=== PATIENT | male | born 1995 | race Caucasian/White ===

== ENCOUNTER 2017-02-11 15:19 | Emergency (ER) | payer OTHER ==
[2017-02-11 15:31] VITALS: BP 132/78
--- NOTE | 2017-02-11 16:22 | ED ---
Psychiatric Complaint - HPI Summary HPI Summary: 21M presents with anxiety today. He states he has been working more and has not been eating much or sleeping well. He has a strong family history of anxiety. He states he used to be on medication but hasn't been on a while. He denies any si/hi. He is looking for medication to help him when he has an anxiety attack. He denies any chest pain, SOB, or recent illness. He states when he has an attack he gets numbness in his fingers. - History Of Current Complaint Chief Complaint: EDGeneral Time Seen by Provider: 02/11/17 15:54 PMH/Surg Hx/FS Hx/Imm Hx Endocrine/Hematology History: Denies: Hx Anticoagulant Therapy Cardiovascular History: Denies: Hx Hypertension Psychiatric History: Reports: Hx Anxiety Infectious Disease History: No Infectious Disease History: Denies: Traveled Outside the [place] in Last 30 Days - Family History Known Family History: Positive: Other - anxiety - Social History Alcohol Use: Weekly Substance Use Type: Reports: None Smoking Status (MU): Light Every Day Tobacco Smoker Review of Systems Negative: Fever Negative: Chest Pain Negative: Shortness Of Breath Positive: Anxious All Other Systems Reviewed And Are Negative: Yes Physical Exam Triage Information Reviewed: Yes Vital Signs On Initial Exam: Initial Vitals Temp Pulse Resp BP Pulse Ox 99.1 F 96 16 101/59 96 02/11/17 15:28 02/11/17 15:28 02/11/17 15:28 02/11/17 15:28 02/11/17 15:28 Vital Signs Reviewed: Yes Appearance: Positive: Well-Appearing Skin: Positive: Warm, Dry Head/Face: Positive: Normal Head/Face Inspection Eyes: Positive: Normal, Conjunctiva Clear ENT: Positive: Normal ENT inspection, Pharynx normal, TMs normal Respiratory/Lung Sounds: Positive: Clear to Auscultation, Breath Sounds Present Cardiovascular: Positive: Normal, RRR Abdomen Description: Positive: Nontender, Soft Bowel Sounds: Positive: Present - Gricel Coma Scale Coma Scale Total: 15 Diagnostics - Vital Signs Vital Signs Temp Pulse Resp BP Pulse Ox 02/11/17 15:30 99.1 F 105 20 132/78 97 02/11/17 15:28 99.1 F 96 16 101/59 96 - Laboratory Lab Statement: Any lab studies that have been ordered have been reviewed, and results considered in the medical decision making process. Course/Dx - Course Course Of Treatment: 21M presents with anxiety today. He states he has been working more and has not been eating much or sleeping well. He has a strong family history of anxiety. He states he used to be on medication but hasn't been on a while. He denies any si/hi. He is looking for medication to help him when he has an anxiety attack. He denies any chest pain, SOB, or recent illness. He states when he has an attack he gets numbness in his fingers. normal PE. will prescribe atrax and told to get mental health provider. patient understands and agrees with plan - Differential Dx/Clinical Impression Differential Diagnosis/HQI/PQRI: Positive: Anxiety, Depression Provider Diagnosis: Anxiety Discharge - Discharge Plan Condition: Good Disposition: HOME Prescriptions: hydrOXYzine HCL TAB* [Atarax 25 MG TAB*] 25 mg PO TID PRN #20 tab PRN Reason: Anxiety Patient Education Materials: Anxiety (ED) Referrals: No Primary Care Phys,NOPCP [Primary Care Provider] - Additional Instructions: Take hydroxyzine up to three times a day for anxiety as needed Get rest and drink plenty of fluids Establish care with primary or mental health counselor Return to ED if develop any new or worsening symptoms
== END 2017-02-11 16:31 | disposition home or self-care (01) ==
LOC: ED 15:19
DX: F41.9 Anxiety disorder, unspecified (principal); F17.210 Nicotine dependence, cigarettes, uncomplicated
CPT/HCPCS: 99281